=== PATIENT | female | born 1980 | race Caucasian/White ===

== ENCOUNTER → 2017-12-12 | Outpatient (CLI) | payer OTHER ==
[2017-12-12] VITALS (8 sets, daily range): BP systolic 105–127; BP diastolic 63–79
[~2017-12-12] VITALS: Ht 162.6 cm; Wt 70.3 kg
[~2017-12-12] MED LIST: CELLCEPT500 MG PO; HYDROXYCHLOROQ200 M1 PO; LEXAPRO 10 MG T10 M2 PO; LISINOPRIL5 MG PO; VALACYCLOVIR500 MG PO; XANAX 0.5 MG0.5 MG PO
--- NOTE | ~2017-12-12 | S ---
[facility] [place] [address] SURGICAL PATH RPT PROCEDURE Name: ENE DYER Room #: REG JOSE RAMON M.Simin.#: [id number] Admission: 12/12/17 Date of : 84 Discharge: Report #: [id number] Path Case #: [id number] PATHOLOGY REPORT COLLECTION DATE: 12/12/2017 RECEIVED DATE: 12/12/2017 SUBMITTING PHYS: Dr. Julio Byrne OTHER PHYS: SPECIMEN(S) RECEIVED: A.Left kidney-renal bx * * * * * * * * * * * * FINAL DIAGNOSIS: COMMENT: Please see next page for scanned image of report submitted by [facility] consultant pathologist, Aly Menchaca M.D. (CLW:amj; d/t: 12/17/2017) PATHOLOGIST: Ines Villalba M.D. REPORT ELECTRONICALLY SIGNED BY: Ines Villalba M.D. DATE/TIME: 12/17/2017 15:59 * * * * * * * * * * * * GROSS PATHOLOGY: Received in formalin labeled "Ene Dyer, left kidney," is a single needle core of sutherland soft tissue measuring 1.5 cm in length and 0.1 cm in diameter. The specimen is forwarded to an outside laboratory for further processing. Also received in Ethan's fixative labeled "nEe Dyer, left kidney," are two distinct needle cores of sutherland soft tissue measuring 0.7 and 1.7 cm in length and 0.1 cm each in diameter. The specimen is forwarded to an outside laboratory for direct immunofluorescence studies. (DAC; 12/12/2017) CLINICAL HISTORY: None provided INITIAL CPT CODE(S): A; 34810 Professional and Technical services performed by [employer] [facility] [employer], [address] , [address], [place] [address]. [address] [address] SURGICAL PATH RPT PROCEDURE Name: ENE DYER Room #: GONZALEZ Torres#: [id number] Admission: 12/12/17 Date of : 84 Discharge: Report #: [id number] Path Case #: [id number] [facility] [address] [address] PHONE: [phone] DIRECTOR: Johnathon López M.D. * * * END OF REPORT * * *
[2017-12-12 09:51] LABS: CALCIUM 8.5 mg/dL (8.5-10.1); CREATININE 0.6 mg/dL (0.6-1.0)
== END | disposition home or self-care (01) ==
LOC: ULTRA 08:13
PROVIDERS: Radiology Diagnostic Radiology
DX: M32.14 Glomerular disease in systemic lupus erythematosus (principal); Z79.899 Other long term (current) drug therapy